=== PATIENT | male | born 1995 | race African-American/Black ===

== ENCOUNTER 2021-06-11 01:01 | Emergency (ER) | payer OTHER ==
[~2021-06-11] VITALS: Ht 190.5 cm; Wt 142.9 kg
[~2021-06-11 01:01] MED LIST: KEFLEX500 MG PO; VICODIN 5-5001 EACH PO
[2021-06-11] MEDS ORDERED: PROAIR HFA8.5 GM INH (01:09)
[2021-06-11 03:12] LABS: ABSOLUTE NEUTROPHILS 6.8 thou/uL (1.4-8.2); BASOPHILS 0.4 % (0.0-2.0); HEMATOCRIT 48.3 % (42.0-52.0); HEMOGLOBIN 16.2 gm/dL (14.0-18.0); MCH 27.9 pg (26.0-34.0); MCHC 33.6 g/dL (28.0-37.0); MONOCYTES 7.3 % (1.0-8.0); PLATELET COUNT 382 thou/uL (150-400); POLYS 64.3 % (36.0-66.0); RBC 5.82 mil/uL (4.50-6.00); RDW 14.7 % (10.5-14.5); WBC 10.5 thou/uL (4.0-11.0)
[2021-06-11 03:18] LABS: CALCIUM 9.1 mg/dL (8.5-10.1); CREATININE 1.3 mg/dL (0.7-1.3); POTASSIUM 3.5 mmol/L (3.5-5.1)
[2021-06-11 03:24] LABS: ALBUMIN 4.4 g/dL (3.4-5.0); TOTAL BILIRUBIN 0.3 mg/dL (0.2-1.0); TOTAL PROTEIN 8.1 g/dL (6.4-8.2)
[2021-06-11] MEDS ORDERED: CEPHALEXIN500 MG PO (04:58)
[2021-06-11 05:55] VITALS: BP 113/61
== END 2021-06-11 05:55 | disposition home or self-care (01) ==
LOC: ER 01:01
PROVIDERS: Emergency Medicine
DX: S31.139A Puncture wound of abdominal wall without foreign body, unspecified quadrant without penetration into peritoneal cavity, initial encounter (principal); S81.832A Puncture wound without foreign body, left lower leg, initial encounter; J45.909 Unspecified asthma, uncomplicated; Z79.891 Long term (current) use of opiate analgesic; Z79.899 Other long term (current) drug therapy; Z79.51 Long term (current) use of inhaled steroids; W34.00XA Accidental discharge from unspecified firearms or gun, initial encounter; Y93.89 Activity, other specified; Y92.481 Parking lot as the place of occurrence of the external cause; Y99.8 Other external cause status